=== PATIENT | male | born 1960 | race Two or more races ===

== ENCOUNTER 2018-06-16 05:49 | Day surgery (SDC) | payer OTHER | END 2018-06-16 10:55 | disposition home or self-care (01) | LOC: AMB-ENDOS 05:49 | DX: D12.5 Benign neoplasm of sigmoid colon (principal); K64.8 Other hemorrhoids; K57.30 Diverticulosis of large intestine without perforation or abscess without bleeding ==

== ENCOUNTER 2021-01-23 09:47 | Day surgery (SDC) | payer OTHER | END 2021-01-23 14:30 | disposition home or self-care (01) | LOC: AMB-ENDOS 09:47 | PROVIDERS: ATTEND Colon & Rectal Surgery | DX: D12.2 Benign neoplasm of ascending colon (principal); D12.3 Benign neoplasm of transverse colon; D12.5 Benign neoplasm of sigmoid colon; Z20.822 Contact with and (suspected) exposure to COVID-19; K64.8 Other hemorrhoids; Z12.11 Encounter for screening for malignant neoplasm of colon ==

== ENCOUNTER 2023-03-18 05:50 | Day surgery (SDC) | payer OTHER | END 2023-03-18 11:30 | disposition home or self-care (01) | LOC: AMB-ENDOS 05:50 → CIR.AMB 13:15 → AMB-ENDOS 13:15 | PROVIDERS: ATTEND Colon & Rectal Surgery | DX: R19.5 Other fecal abnormalities (principal); K64.8 Other hemorrhoids; K62.5 Hemorrhage of anus and rectum; Z91.041 Radiographic dye allergy status; Z20.822 Contact with and (suspected) exposure to COVID-19 ==

== ENCOUNTER 2024-02-17 06:23 | Day surgery (SDC) | payer OTHER ==
[2024-02-17] MEDS ORDERED: DIPHENHYDRAMINE HCL 50 MG/ML VIAL 1ML IV ONE (12:00)
[2024-02-17] MEDS ORDERED: MIDAZOLAM HCL 2 MG/2 ML VIAL IV ONE (12:00)
[2024-02-17] MEDS ORDERED: ONDANSETRON HCL 2 MG/ML VIAL IV ONE (12:00)
[2024-02-17] MEDS ORDERED: fentaNYL CITRATE 50 MCG/ML AMPUL IV PUSH ONE (12:00)
== END 2024-02-17 13:25 | disposition home or self-care (01) ==
LOC: AMB-ENDOS 06:23
PROVIDERS: ATTEND Colon & Rectal Surgery
DX: D12.2 Benign neoplasm of ascending colon (principal); D12.5 Benign neoplasm of sigmoid colon; K63.5 Polyp of colon; K57.30 Diverticulosis of large intestine without perforation or abscess without bleeding; R19.5 Other fecal abnormalities; Z91.041 Radiographic dye allergy status